=== PATIENT | male | born 1970 | race Caucasian/White ===

== ENCOUNTER 2019-07-04 09:52 | Emergency (ER) | payer OTHER ==
[2019-07-04] MEDS ORDERED: Bacitracin/Neomycin/Polymyxin B Oint 0.9 GM U/D Packet TOP ONE (10:47)
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
== END 2019-07-04 11:06 | disposition home or self-care (01) ==
LOC: LL.ED 09:52
DX: S61.230A Puncture wound without foreign body of right index finger without damage to nail, initial encounter (principal); Z87.891 Personal history of nicotine dependence; W34.010A Accidental discharge of airgun, initial encounter
CPT/HCPCS: 73140-F6; 99283-25